=== PATIENT | male | born 2000 | race Caucasian/White ===

== ENCOUNTER 2021-06-19 09:48 | Emergency (ER) | payer OTHER ==
[2021-06-19] MEDS ORDERED: LEVOFLOXACIN500 MG PO (10:29)
== END 2021-06-19 11:17 | disposition home or self-care (01) ==
LOC: ER1 09:48
DX: S91.331A Puncture wound without foreign body, right foot, initial encounter (principal); F17.290 Nicotine dependence, other tobacco product, uncomplicated; W22.8XXA Striking against or struck by other objects, initial encounter; Y92.009 Unspecified place in unspecified non-institutional (private) residence as the place of occurrence of the external cause
CPT/HCPCS: 73620; 99283